=== PATIENT | male | born 1945 | race Caucasian/White ===

== ENCOUNTER 2017-09-02 07:57 | Day surgery (SDC) | payer OTHER ==
[2017-09-02] MEDS ORDERED: PROPOFOL 40 ML (09:13)
== END 2017-09-02 12:09 | disposition home or self-care (01) ==
LOC: GIL 07:57
DX: Z12.11 Encounter for screening for malignant neoplasm of colon (principal); D12.0 Benign neoplasm of cecum; E78.5 Hyperlipidemia, unspecified; E11.9 Type 2 diabetes mellitus without complications
CPT/HCPCS: 45380; 82962; 88305